=== PATIENT | male | born 1965 | race Asian ===

== ENCOUNTER 2016-04-30 16:32 | Emergency (ER) | payer MEDICAID ==
[~2016-04-30] VITALS: Ht 170.2 cm; Wt 145.0 kg
[2016-04-30] MEDS ORDERED: IBUPROFEN 600 MG TABLET PO ONE (20:45)
[2016-04-30 21:22] VITALS: BP 165/90
== END 2016-04-30 21:28 | disposition home or self-care (01) ==
LOC: EMS 16:35
DX: H91.90 Unspecified hearing loss, unspecified ear (principal); L84 Corns and callosities; E11.9 Type 2 diabetes mellitus without complications
CPT/HCPCS: 99282